=== PATIENT | female | born 1985 | race Caucasian/White ===

== ENCOUNTER 2024-11-01 07:07 | Outpatient (CLI) | payer BC ==
[2024-11-01] MEDS ORDERED: SODIUM FERRIC GLUCONATE 62.5 MG/5 ML ONE (07:24)
== END 2024-11-01 07:08 | disposition home or self-care (01) ==
LOC: NAV ER/OP 07:07
PROVIDERS: ATTEND Student in an Organized Health Care Education/Training Program
DX: D50.9 Iron deficiency anemia, unspecified (principal); Z88.2 Allergy status to sulfonamides
CPT/HCPCS: J2916

== ENCOUNTER 2024-11-07 06:59 | Outpatient (CLI) | payer BC ==
[2024-11-07] MEDS ORDERED: SODIUM FERRIC GLUCONATE 62.5 MG/5 ML ONE (07:21)
== END 2024-11-07 07:00 | disposition home or self-care (01) ==
LOC: NAV ER/OP 06:59
PROVIDERS: ATTEND Student in an Organized Health Care Education/Training Program
DX: D50.9 Iron deficiency anemia, unspecified (principal)
CPT/HCPCS: J2916